=== PATIENT | male | born 1985 | race Caucasian/White ===

== ENCOUNTER → 2016-12-30 | Outpatient (CLI) | payer BC ==
--- NOTE | 2016-12-30 13:56 | KCIC ---
Right hip two views Indication: Acute right hip pain. Time of exam 1:06 p.m. Femoral acetabular alignment is normal. The joint space is well maintained. The femoral head and neck are intact. No fractures are seen. Impression: No acute bony abnormality is detected. Electronically signed by: Julius Jones MD (Dec 30, 2016 13:54:40)
--- NOTE | 2016-12-30 13:58 | KCIC ---
Lumbar spine, five views Indication: Acute right hip pain and back pain. Time of exam 1:09 p.m. Curvature and alignment is normal. The vertebral body heights are maintained. No acute compression fracture is seen. There is no evidence of spondylolysis or spondylolisthesis. There is some mild disc space narrowing noted at L5-S1 level. Impression: Lower lumbar spondylosis. No acute bony abnormality is detected. Electronically signed by: Jluius Jones MD (Dec 30, 2016 13:56:03)
== END | disposition home or self-care (01) ==
LOC: KCIC 12:43
PROVIDERS: ATTEND Physician Assistant
DX: M47.896 Other spondylosis, lumbar region (principal); M54.31 Sciatica, right side
CPT/HCPCS: 72110; 73502

== ENCOUNTER 2017-11-08 20:55 | Emergency (ER) | payer OTHER, BC ==
[2017-11-08 21:35] LABS: ADD MAN DIFF? NO
[2017-11-08 21:41] LABS: BASO % 0 % (0-3); EOS % 0 % (0-3); HEMATOCRIT 51.4 % (39.0-53.0); HEMOGLOBIN 17.4 g/dL (13.0-17.5); LYMPH # 1.5 x10^3/uL (1.0-4.8); LYMPH % 12 % (24-48); MEAN CORPUSCULAR HEMOGLOBIN 29 pg (25-35); MEAN CORPUSCULAR HGB CONC 34 g/dL (31-37); MEAN CORPUSCULAR VOLUME 85 fL (79-100); MONO # 0.7 x10^3/uL (0.0-1.1); MONO % 5 % (0-9); NEUT # 10.7 x10^3uL (1.8-7.7); NEUT % 83 % (31-73); PLATELET COUNT 252 x10^3/uL (140-400); RED BLOOD COUNT 6.05 x10^6/uL (4.30-5.70); RED CELL DISTRIBUTION WIDTH 13.6 % (11.5-14.5); WHITE BLOOD COUNT 12.9 x10^3/uL (4.0-11.0)
[2017-11-08] MEDS: IV NORMAL SALINE 1000ML BAG 1,000 ML IV ×2 (21:46)
[2017-11-08] MEDS: ONDANSETRON PF 4 MG/2 ML VIAL. IV ×2 (21:46)
[2017-11-08 21:53] LABS: ANION GAP 10 (6-14); BLOOD UREA NITROGEN 14 mg/dL (8-26); BUN/CREATININE RATIO 13 (6-20); CALCIUM 9.2 mg/dL (8.5-10.1); CARBON DIOXIDE 29 mmol/L (21-32); CHLORIDE 103 mmol/L (98-107); CREATININE 1.1 mg/dL (0.7-1.3); GFR 77.6; GLUCOSE 145 mg/dL (70-99); SODIUM 142 mmol/L (136-145)
[2017-11-08 22:02] LABS: TROPONINI < 0.017 ng/mL (0.000-0.055)
[2017-11-08 22:07] LABS: ALBUMIN 4.3 g/dL (3.4-5.0); ALBUMIN/GLOBULIN RATIO 1.3 (1.0-1.7); ALK PHOS 73 U/L (46-116); ALT (SGPT) 49 U/L (16-63); AST (SGOT) 27 U/L (15-37); LIPASE 139 U/L (73-393); MAGNESIUM 1.9 mg/dL (1.8-2.4); TOTAL BILIRUBIN 0.5 mg/dL (0.2-1.0); TOTAL PROTEIN 7.6 g/dL (6.4-8.2)
== END 2017-11-08 23:25 | disposition home or self-care (01) ==
LOC: ER 20:55
DX: R10.12 Left upper quadrant pain (principal); R19.7 Diarrhea, unspecified; R11.2 Nausea with vomiting, unspecified; K21.9 Gastro-esophageal reflux disease without esophagitis
CPT/HCPCS: 36415; 71045; 80053; 83690; 83735; 84484; 85025; 93005; 96361; 96374; 99285-25; J2405; J7030